=== PATIENT | female | born 1950 | race Caucasian/White ===

== ENCOUNTER 2019-06-06 14:17 | Day surgery (SDC) | payer MEDICARE, OTHER ==
[~2019-06-06] VITALS: Ht 165.1 cm; Wt 69.5 kg
[2019-06-06] MEDS ORDERED: LIPITOR10 MG PO (14:26)
[2019-06-06] MEDS ORDERED: HYDROCHLOROTH12.5 M1 PO (14:26)
[2019-06-06] MEDS ORDERED: ACCUPRIL5 MG PO (14:26)
[2019-06-06 14:51] LABS: BASOPHILS 0.1 % (0-2); EOSINOPHILS 0.1 % (0-7); HEMATOCRIT 38.3 % (36.0-48.0); HEMOGLOBIN 12.9 g/dL (12-16); IMMATURE GRANULOCYTES 0.4 % (0-5); LYMPHOCYTES 9.1 % (15-50); MCH 33.4 pg (26.0-34.0); MCHC 33.7 g/dL (31.0-37.0); MCV 99.2 fL (80.0-100.0); MONOCYTES 5.7 % (2-11); NEUTROPHILS 84.6 % (40-80); PLATELET COUNT 230 10x3/uL (130-400); RBC 3.86 10x6/uL (4.00-5.40); RDW 13.5 % (11.5-14.5); WBC 16.6 10x3/uL (4.8-10.8)
[2019-06-06 15:08] LABS: ALBUMIN 3.5 g/dL (3.4-5.0); ANION GAP 11.4 mmol/L (8-16); BILIRUBIN - TOTAL 0.65 mg/dL (0.2-1.3); CALCIUM 9.3 mg/dL (8.5-10.1); CARBON DIOXIDE 28.1 mmol/L (21.0-32.0); CREATININE - SERUM 1.6 mg/dL (0.6-1.3); POTASSIUM - SERUM 3.5 mmol/L (3.5-5.1); PROTEIN - SERUM 7.5 g/dL (6.4-8.2)
[2019-06-06 16:24] LABS: APPEARANCE CLEAR (CLEAR); COLOR YELLOW (YELLOW)
[2019-06-06 16:25] LABS: BILIRUBIN NEGATIVE (NEGATIVE); GLUCOSE NEGATIVE (NEGATIVE); KETONE NEGATIVE (NEGATIVE); NITRITE NEGATIVE (NEGATIVE); PROTEIN TRACE mg/dL (NEGATIVE); SPECIFIC GRAVITY 1.005 (1.005-1.020); UROBILINOGEN NORMAL (NORMAL)
[2019-06-06 16:26] LABS: RED CELLS - URINE 0-5 /hpf (0-5); WHITE CELLS - URINE 0-5 /hpf (NEGATIVE)
[2019-06-06 16:27] LABS: BACTERIA FEW /hpf (NEGATIVE); GRANULAR CAST RARE /lpf (NONE SEEN); TALC POWDER CRYSTALS OCC /hpf (NONE SEEN)
[2019-06-06 19:56] LABS: CKMB 0.9 U/L (0.0-3.6); CREATINE KINASE 26 UL (21-215)
[2019-06-06 19:58] LABS: TROPONIN-I < 0.017 ng/mL (0.000-0.060)
--- NOTE | 2019-06-06 21:20 | NUR ---
PT ARRIVED ON UNIT VIA STRETCHER FROM PACU ESCORTED BY 2 SURGERY NURSES AND SPOUSE. VITALS STABLE AND DOCUMENTED. PT IS RESTING QUIETLY AT THIS TIME. SCD'S CONNECTED AND TURNED ON TO BLE. WILL MONITOR FOR NEEDS.
[2019-06-06 21:24] VITALS: BP 129/72
[2019-06-06 21:40] VITALS: BP 128/69
[2019-06-06 21:55] VITALS: BP 125/74
[2019-06-06 22:10] VITALS: BP 120/71
[2019-06-06 22:40] VITALS: BP 120/67
[2019-06-06 23:10] VITALS: BP 122/65
[2019-06-07] VITALS (10 sets, daily range): BP systolic 108–121; BP diastolic 62–71; Ht 165.1 cm; Wt 69.5 kg
[2019-06-07 05:40] LABS: BASOPHILS 0 % (0-2); EOSINOPHILS 0 % (0-7); HEMATOCRIT 36.3 % (36.0-48.0); HEMOGLOBIN 11.9 g/dL (12-16); IMMATURE GRANULOCYTES 0.2 % (0-5); MCH 32.8 pg (26.0-34.0); MCHC 32.8 g/dL (31.0-37.0); MEAN PLATELET VOLUME 9.4 fL (7.4-10.4); MONOCYTES 4.1 % (2-11); NEUTROPHILS 92.7 % (40-80); PLATELET COUNT 200 10x3/uL (130-400); RBC 3.63 10x6/uL (4.00-5.40); RDW 13.4 % (11.5-14.5)
[2019-06-07 05:46] LABS: WBC 11.4 10x3/uL (4.8-10.8)
[2019-06-07 06:15] LABS: ALKALINE PHOSPHATASE 77 U/L (46-116); ALT (SGPT) 11 U/L (10-68); BILIRUBIN - TOTAL 0.43 mg/dL (0.2-1.3); CALCIUM 8.4 mg/dL (8.5-10.1); CHLORIDE - SERUM 106 mmol/L (98-107); CKMB 0.8 U/L (0.0-3.6); CREATINE KINASE 51 UL (21-215); GLUCOSE 140 mg/dL (74-106); MAGNESIUM - SERUM 1.8 mg/dL (1.8-2.4); POTASSIUM - SERUM 3.7 mmol/L (3.5-5.1); PROTEIN - SERUM 6.6 g/dL (6.4-8.2); SODIUM 139 mmol/L (136-145)
[2019-06-07 06:16] LABS: ALBUMIN 2.8 g/dL (3.4-5.0); CALC OSMOLALITY 281 mosm/kg (275-300); CARBON DIOXIDE 20.4 mmol/L (21.0-32.0); CREATININE - SERUM 0.8 mg/dL (0.6-1.3); UREA NITROGEN 19 mg/dL (7-18); eGFR NON AFRICAN AMERICAN 76 mL/min (90-120)
[2019-06-07 06:35] LABS: TROPONIN-I < 0.017 ng/mL (0.000-0.060)
--- NOTE | 2019-06-07 11:05 | NUR ---
PT ALERT X 4. BREATH SOUNDS CLEAR BILAT. LAP SITES TO ABDOMEN, TENDER TO PALPATION. PT REPORTING PAIN OF 6/10, NOT WANTING PAIN MEDICATION DUE TO THE WAY IT MAKES HER FEEL, TYLENOL GIVEN PER ORDERS. IV TO RIGHT AC, PATENT, DRESSING CDI. FAMILY AT BEDSIDE. BED LOW, CALL LIGHT IN REACH. NO OTHER NEEDS AT THIS TIME.
--- NOTE | 2019-06-07 20:07 | NUR ---
DISCHARGE INSTRUCTIONS GIVEN VERBALLY AND PRINTED COPIES. PT SIGNED COPIES. GAVE MEDICATION PRESCRIPTIONS TO HAVE FILLED...COPIES IN CHART. REMOVED IV WITH CATHETER TIP INTACT AND PRESSURE DRESSING APPLIED. ALL QUESTIONS ANSWERED.
--- NOTE | 2019-06-07 20:30 | NUR ---
PT ESCORTED TO FRONT ENTRANCE VIA WHEELCHAIR WITH SPOUSE AT HER SIDE.
--- NOTE | 2019-06-09 15:41 | OP ---
PATIENT NAME: LILIYA VAZQUEZ MEDICAL RECORD: [id number] :54 LOCATION:[facility] ADMISSION DATE: SURGEON: KODI SHRESTHA MD DATE OF OPERATION: 06/06/2019 PREOPERATIVE DIAGNOSIS: Acute appendicitis with localized peritonitis. POSTOPERATIVE DIAGNOSIS: 1. Acute Meckel's diverticulitis with localized peritonitis. 2. Normal-appearing appendix. PROCEDURE: 1. Laparoscopic Meckel's diverticulectomy. 2. Laparoscopic appendectomy. SURGEON: Kodi Shrestha MD EDUCATIONAL INSTITUTION PRESIDENT: None. BLOOD LOSS: Minimal. ANESTHESIA: General. COMPLICATIONS: None. The risks, possible complications, and alternatives to the procedure were explained to the patient. She elects to proceed. Discussion specifically included, but was not limited to, bleeding requiring emergency reoperation, infection, possibility that the appendix will be normal and in that event it would still be removed in order to avoid diagnostic confusion in the future should the patient have a recurrence or persistence of abdominal pain. OPERATIVE COURSE: The patient was conveyed to the operating room urgently on 06/06/2019. General anesthesia was induced by the anesthesia staff. The abdomen was sterilely prepped and draped. A small skin tammie was accomplished in the left upper quadrant. A Veress needle was inserted through the skin tammie into the peritoneal cavity. CO2 insufflation was begun. Once a sufficient pneumoperitoneum had been achieved, a 5-mm trocar was inserted through an incision in the left lower quadrant. Under direct internal vision utilizing a television camera, a 12-mm trocar was inserted through an incision at the umbilicus. Another 5-mm trocar was inserted through an incision in the suprapubic area. During insertion of the Veress needle and all trocars, there appeared to have been no injury to the bowels, any intraperitoneal or retroperitoneal structures. There was a little bit of murky fluid. Interestingly, some of the small bowel was inflamed. The abdominal wall had a little bit of inflammation indicating some peritonitis of the abdominal wall; however, the appendix appeared normal. I was able to mobilize the appendix sharply. A window was created in the mesoappendix. I stapled across the tip of the cecum with an Endo-AYDEE type staple utilizing a blue load. I then took down the mesoappendix utilizing the laparoscopic EnSeal device. The appendix was placed within a bag retrieval device and was withdrawn through the umbilical fascia defect. As I really did not have a reason for her abdominal pain and peritonitis, I OPERATIVE REPORT [id number] LILIYA VAZQUEZ began to investigate further, and I started to run the small bowel. I identified a Meckel's diverticulum. It appeared acutely inflamed. It was grasped. I stapled across the base of the Meckel's diverticulum with an Endo-AYDEE type staple utilizing a blue load. This did not cause any stricturing of the lumen of the ileum. There was no bleeding. The Meckel's diverticulum was placed within a bag retrieval device and was withdrawn through the umbilical fascia defect. The 12-mm trocar was replaced. I irrigated and aspirated in the right lower quadrant. There was no bleeding even at low pressure of 8. A topical hemostatic agent was added to the right lower quadrant for additional hemostasis. The Mark-Kamla suture closure device and 0 Vicryl sutures were used to close the umbilical fascia defect. All trocars were removed and the abdomen desufflated. The umbilical incision was closed with interrupted 4-0 Vicryl Rapide sutures. The other 2 trocar sites were closed with interrupted intracuticular 3-0 Vicryls. Benzoin and Steri-Strips were applied. The patient was then extubated and conveyed to post-anesthesia care unit where she was in stable condition. I plan that she may be dismissed home tomorrow. TRANSINT:[id number] Voice Confirmation ID: [id number] DOCUMENT ID: [id number] KODI SHRESTHA MD at 1541 CC: [id number] DICTATION DATE: 06/07/191939 INTERNET NETWORK SPECIALIST: 06/07/192329 [facility] 06/07/19 [facility] [address] [place] [address]
== END 2019-06-07 20:31 | disposition home or self-care (01) ==
LOC: D.ER 14:17 → D.MS 14:17 → D.ER 14:17 → D.MS 17:23 → EDSTATUS 18:06 → D.ER 06-07 20:31
PROVIDERS: Family Medicine; ATTEND Family Medicine
DX: Q43.0 Meckel's diverticulum (displaced) (hypertrophic) (principal); K35.30 Acute appendicitis with localized peritonitis, without perforation or gangrene